=== PATIENT | male | born 2000 | race Caucasian/White ===

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

== ENCOUNTER → 2020-05-01 14:25 | Outpatient (CLI) | payer OTHER, SELFPAY | PROVIDERS: PCP Family Medicine; Referring Provider Family Medicine; Visit Provider Family Medicine | DX: Z20.828 Contact with and (suspected) exposure to other viral communicable diseases (principal) | CPT/HCPCS: 87635; U0003 ==

== ENCOUNTER → 2020-08-11 14:55 | Outpatient (CLI) | payer OTHER, SELFPAY | PROVIDERS: PCP Family Medicine; Referring Provider Family Medicine; Visit Provider Nurse Practitioner Family | DX: R05 Cough (principal) | CPT/HCPCS: 87635; U0003 ==

== ENCOUNTER 2020-08-30 10:18 | Emergency (ER) | payer OTHER, SELFPAY ==
[2020-08-30 10:19] VITALS: BP 133/84; PULSE 91; RESP 17; TEMP 36.1; O2SAT 100; BMI 25.1
--- NOTE | 2020-08-30 10:37 | ED.VIS.GEN ---
History of Present Illness Chief Complaint: Depression Informant: Patient Onset: Month(s) - 1 year Context: Gradual Onset Timing: Waxes and wanes Current Severity: Mild Maximum Severity: Moderate Narrative: Patient presents seeking help for mental health issues. He states he has had problems with depression and suicidal thoughts for the last year or so. He is currently on medication for ADHD but nothing for depression or anxiety. He denies suicidal ideation currently, but does state that she had some suicidal thoughts last night. He believes this stems from being forced into a particular path in his life not being able to make his own decisions. He states he will get very angry when he thinks about this. Last night he states he punched a wall out of anger. Patient does admit to alcohol use in the evenings. He states he can easily skip several nights of drinking and has never had withdrawal. He does admit to vaping and using marijuana. - Past Medical History (1) Asthma Status: Chronic (2) ADHD Status: Chronic Past Medical History - Allergies and Home Meds Allergies/Adverse Reactions: Allergies No Known Allergies Allergy (Verified 08/30/20 10:19) Primary Care Physician: Alvaro Vargas MD [STAFF PHYSICIAN] - Lives: With Family Smoking Status: Current every day smoker - Vape Alcohol: Occasional Drugs: Marijuana Review of Systems General: Denies: Chills, Fever Eyes: Denies: Visual changes - bilaterally ENT: Denies: Bilateral ear pain Cardiovascular: Denies: Chest pain Respiratory: Denies: Dyspnea, Cough Gastrointestinal: Denies: Abdominal pain, Vomiting, Diarrhea Musculoskeletal: Denies: Swelling, Extremity Pain Skin: Denies: Rash Hematologic: Denies: Easy bruising, Easy bleeding Allergy: Denies: Uticaria Physical Exam Vital Signs/Narrative: Vital Signs Temp Pulse Resp BP Pulse Ox 08/30/20 10:19 97.0 F L 91 17 133/84 H 100 Inital Vital Signs reviewed: Yes General: Well nourished, Well developed Head: Normocephalic ENT: Moist mucous membranes Neck: Supple Cardiovascular: Regular rate, Regular rhythm Respiratory: No distress, CTA bilaterally Abdomen: Soft, Nontender Extremities: Nontender Skin: Normal color Neurological: Alert, Oriented x3 Psychological: - - Good eye contact. Patient upfront admitting to problems with his mental health and admits to recent suicidal ideation. He denies particular plan or prior attempts. Diagnostic/Tx/Re-eval Laboratory Results 08/30/20 08/30/20 08/30/20 10:35 10:45 10:45 WBC 7.7 RBC 5.76 Hgb 16.1 Hct 48.4 MCV 84.0 MCH 28.0 MCHC 33.3 RDW Std Deviation 39.7 RDW Coeff of Miriam 13.0 Plt Count 339 MPV 8.7 Immature Gran % (Auto) 0.400 Neut % (Auto) 57.4 Lymph % (Auto) 25.9 Brule % (Auto) 8.2 Eos % (Auto) 7.7 H Baso % (Auto) 0.4 Absolute Neuts (auto) 4.4 Absolute Lymphs (auto) 1.98 Nucleated RBC % 0 Sodium 139 Potassium 4.2 Chloride 109 H Carbon Dioxide 27.0 Anion Gap 3 L BUN 11 Creatinine 1.00 Estim Creat Clear Calc 106.33 Est GFR (MDRD) Af Amer 123 Est GFR (MDRD) Non-Af 101 BUN/Creatinine Ratio 11.0 Glucose 101 Calcium 8.9 Urine Opiates Screen NEGATIVE Urine Methadone Screen NEGATIVE Ur Barbiturates Screen NEGATIVE Ur Phencyclidine Scrn NEGATIVE Ur Amphetamines Screen POSITIVE H U Methamphetamin-MDMA NEGATIVE U Benzodiazepines Scrn NEGATIVE Urine Cocaine Screen NEGATIVE U Cannabinoids Screen POSITIVE H Ur Drug Screen Comment Ethyl Alcohol 08/30/20 10:45 WBC RBC Hgb Hct MCV MCH MCHC RDW Std Deviation RDW Coeff of Miriam Plt Count MPV Immature Gran % (Auto) Neut % (Auto) Lymph % (Auto) [place] % (Auto) Eos % (Auto) Baso % (Auto) Absolute Neuts (auto) Absolute Lymphs (auto) Nucleated RBC % Sodium Potassium Chloride Carbon Dioxide Anion Gap BUN Creatinine Estim Creat Clear Calc Est GFR (MDRD) Af Amer Est GFR (MDRD) Non-Af BUN/Creatinine Ratio Glucose Calcium Urine Opiates Screen Urine Methadone Screen Ur Barbiturates Screen Ur Phencyclidine Scrn Ur Amphetamines Screen U Methamphetamin-MDMA U Benzodiazepines Scrn Urine Cocaine Screen U Cannabinoids Screen Ur Drug Screen Comment Ethyl Alcohol < 3.0 - Medical Decision Making Patient was evaluated by the counseling center. At this time he denies suicidal ideation. He has never attempted in the past. He does not have a specific plan. Counseling center staff will call him tomorrow to check on him. He has an appointment to see [facility] and therapy the following day. Patient was encouraged to please return back to the emergency room for any worsening thoughts or concerns at any time. ED Disposition - Plan for ED Patient: Disposition: Home or Assisted Living Diagnosis: Depression Instructions: ED Depression Referrals: Alvaro Vargas MD [STAFF PHYSICIAN] - Counseling,Center [GROUP OF PHYSICIANS] -
[2020-08-30 10:58] LABS: Absolute Lymphocyte Count 1.98 X10^3/uL (0.83-4.51); Absolute Neutrophil Count 4.4 X10^3/uL (2.0-7.7); Basophil# 0.03 X10^3/uL; Basophil% 0.4 % (0-1); Eosinophil# 0.59 X10^3/uL; Eosinophils% 7.7 % (0-5); Hematocrit 48.4 % (40-54); Hemoglobin 16.1 g/dL (13.0-16.5); Lymphocyte # 1.98 X10^3/ul (4.0); Lymphocyte % 25.9 % (19-41); Mean Corp Hgb Conc 33.3 g/dL (32-36); Mean Platelet Vol. 8.7 fl (6.2-12.0); Monocyte# 0.63 X10^3/uL; Monocyte% 8.2 % (0-10); NRBC Flagged by Analyzer 0 % (0-5); Neutrophil # 4.39 X10^3/uL (2.7-7.7); Neutrophil % 57.4 % (47-70); Platelet Count 339 K/mm3 (150-450); RBC Distribution Width SD 39.7 fl (35.1-43.9); Red Blood Count 5.76 M/mm3 (4.6-6.2); White Blood Count 7.7 K/mm3 (4.4-11.0)
[2020-08-30 11:09] LABS: Anion Gap 3 (5-15); BUN 11 mg/dL (7-18); Calcium,Total 8.9 mg/dL (8.5-10.1); Chloride 109 mmol/L (98-107); EST Glomerular Filtration Rate 101 mL/min (>60); Est Glom Filt Rate - Afr Amer 123 mL/min (>60); Estimated Creatinine Clearance 106.33 ml/min; Glucose 101 mg/dL (74-106); Potassium 4.2 mmol/L (3.5-5.1); Sodium Level 139 mmol/L (136-145)
[2020-08-30 11:10] LABS: Amphetamine Urine VISTA POSITIVE (<1000 ng/mL); Barbiturate Urine VISTA NEGATIVE (< 200 ng/mL); Benzodiazepine Urine VISTA NEGATIVE (< 200 ng/mL); Cocaine Urine VISTA NEGATIVE (< 300 ng/mL); Ecstacy Urine VISTA NEGATIVE (< 500 ng/mL); Methadone Urine VISTA NEGATIVE (< 300 ng/mL); PCP Urine VISTA NEGATIVE (< 25 ng/mL); THC Urine VISTA POSITIVE (< 50 ng/mL); Vista UDS pH Range 7
[2020-08-30 11:30] LABS: Alcohol, Blood (Medical)-Serum < 3.0 mg/dL
[2020-08-30 12:00] VITALS: RESP 17
--- NOTE | 2020-08-30 12:37 | ED.RN ---
faxed info to counseling center
[2020-08-30 14:10] VITALS: BP 108/73; PULSE 74; RESP 16; O2SAT 99
== END 2020-08-30 14:11 | disposition home or self-care (01) ==
PROVIDERS: Emergency Provider Emergency Medicine; PCP Family Medicine
DX: F32.9 Major depressive disorder, single episode, unspecified (principal); R45.851 Suicidal ideations; F17.200 Nicotine dependence, unspecified, uncomplicated; F90.9 Attention-deficit hyperactivity disorder, unspecified type; J45.909 Unspecified asthma, uncomplicated
CPT/HCPCS: 80048; 80307; 80320; 85025; 99282; G0480

== ENCOUNTER 2021-03-20 04:48 | Emergency (ER) | payer OTHER, SELFPAY ==
[2021-03-20 04:49] VITALS: BP 164/104; PULSE 145; RESP 22; TEMP 36.9; O2SAT 99; BMI 24.7
[2021-03-20 05:05] VITALS: BP 161/96; PULSE 114; RESP 24; O2SAT 99
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
[2021-03-20] MEDS: Morphine 4 MG/ML Syringe IV (05:17)
[2021-03-20] MEDS: Ondansetron 4 MG/2 ML Vial IV (05:18)
[2021-03-20] MEDS: 0.9% Normal Saline 1,000 ML 999 ML IV (05:18)
[2021-03-20 05:20] LABS: Absolute Lymphocyte Count 2.45 X10^3/uL (0.83-4.51); Absolute Neutrophil Count 26.6 X10^3/uL (2.0-7.7); Basophil# 0.11 X10^3/uL; Basophil% 0.3 % (0-1); Eosinophil# 0.02 X10^3/uL; Eosinophils% 0.1 % (0-5); Hematocrit 44.5 % (40-54); Hemoglobin 15.1 g/dL (13.0-16.5); Lymphocyte # 2.45 X10^3/ul (0.83-4.51); Lymphocyte % 7.7 % (19-41); Mean Corp Hgb Conc 33.9 g/dL (32-36); Mean Corpuscular Hgb 27.7 pg (27.0-32.0); Mean Corpuscular Volume 81.7 fL (80-94); Mean Platelet Vol. 8.5 fl (6.2-12.0); Monocyte# 1.82 X10^3/uL; Monocyte% 5.7 % (0-10); NRBC Flagged by Analyzer 0 % (0-5); Neutrophil % 83.3 % (47-70); POSITIVE COUNT YES; POSITIVE DIFFERENTIAL YES; Platelet Count 418 K/mm3 (150-450); RBC Distribution Width CV 13.1 % (11.6-14.6); RBC Distribution Width SD 38.3 fl (35.1-43.9); Red Blood Count 5.45 M/mm3 (4.6-6.2); White Blood Count 31.9 K/mm3 (4.4-11.0)
[2021-03-20 05:26] LABS: Differential Indicated SCAN CRITERIA MET
[2021-03-20 05:36] LABS: AST(SGOT) 87 U/L (15-37); Alanine Aminotransfer ALT/SGPT 62 U/L (16-61); Albumin, Serum 4.3 g/dL (3.2-5.0); Alkaline Phosphatase 117 U/L (45-117); Anion Gap 11 (5-15); BUN 14 mg/dL (7-18); BUN/Creat Ratio 11.4 RATIO (10-20); Bilirubin, Direct 0.14 mg/dL (0.00-0.30); Calcium,Total 8.4 mg/dL (8.5-10.1); Chloride 104 mmol/L (98-107); Creatinine, Serum 1.23 mg/dL (0.70-1.30); EST Glomerular Filtration Rate 79 mL/min (>60); Est Glom Filt Rate - Afr Amer 96 mL/min (>60); Estimated Creatinine Clearance 89.57 ml/min; Globulin 3.5 g/dL (2.2-4.2); Glucose 198 mg/dL (74-106); Potassium 3.2 mmol/L (3.5-5.1); Protein, Total 7.8 g/dL (6.4-8.2); Sodium Level 139 mmol/L (136-145)
[2021-03-20 05:37] LABS: International Normalized Ratio 1.1; Prothrombin Time (Protime)PT. 13.9 SECONDS (11.7-14.9)
[2021-03-20 05:38] LABS: Partial Thromboplast Time 31.3 Seconds (24.1-36.2)
--- NOTE | 2021-03-20 05:58 | ED.RN ---
cervical collar applied.
[2021-03-20] MEDS: HYDROmorphone 0.5 MG/0.5 ML SYRINGE IV ×2 (06:08→07:18)
[2021-03-20] MEDS: 0.9% Normal Saline 1,000 ML 200 ML IV (06:09)
[2021-03-20 06:10] VITALS: BP 177/100; PULSE 113; RESP 25; O2SAT 99
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
[2021-03-20 06:25] VITALS: BP 183/103; PULSE 110; RESP 17; O2SAT 98
[2021-03-20 07:13] VITALS: BP 154/105; PULSE 113; RESP 27; O2SAT 100
[2021-03-20] MEDS: Lidocaine 1% (20 ml mdv) 20 ML Vial INFILT (07:18)
[2021-03-23 12:10] LABS: Pathologist Review Reviewed
== END 2021-03-20 07:31 | disposition short-term general hospital (02) ==
PROVIDERS: Emergency Provider Emergency Medicine; PCP Family Medicine
DX: S12.300A Unspecified displaced fracture of fourth cervical vertebra, initial encounter for closed fracture (principal); S22.41XA Multiple fractures of ribs, right side, initial encounter for closed fracture; S09.90XA Unspecified injury of head, initial encounter; S01.111A Laceration without foreign body of right eyelid and periocular area, initial encounter; S42.302A Unspecified fracture of shaft of humerus, left arm, initial encounter for closed fracture; V43.62XA Car passenger injured in collision with other type car in traffic accident, initial encounter; Y93.89 Activity, other specified; Y92.410 Unspecified street and highway as the place of occurrence of the external cause; Y99.9 Unspecified external cause status; F17.210 Nicotine dependence, cigarettes, uncomplicated
CPT/HCPCS: 12013; 70450; 71260; 72125; 73060; 74177; 80048; 80076; 82077; 85025; 85610; 85730; 93005; 96361; 96374; 96375; 96376; 99285; Q9967; A4216; J2405

== ENCOUNTER 2021-03-22 23:24 | Emergency (ER) | payer OTHER, SELFPAY ==
[2021-03-22 23:24] VITALS: BP 190/119; PULSE 132; RESP 21; TEMP 36.6; O2SAT 97; BMI 27.1
[2021-03-23 00:50] LABS: Absolute Lymphocyte Count 2.34 X10^3/uL (0.83-4.51); Absolute Neutrophil Count 7.7 X10^3/uL (2.0-7.7); Basophil# 0.03 X10^3/uL; Basophil% 0.3 % (0-1); Eosinophil# 0.14 X10^3/uL; Eosinophils% 1.2 % (0-5); Hematocrit 30.3 % (40-54); Hemoglobin 10.4 g/dL (13.0-16.5); Lymphocyte # 2.34 X10^3/ul (0.83-4.51); Lymphocyte % 20.3 % (19-41); Mean Corp Hgb Conc 34.3 g/dL (32-36); Mean Corpuscular Hgb 27.7 pg (27.0-32.0); Mean Corpuscular Volume 80.8 fL (80-94); Mean Platelet Vol. 9.1 fl (6.2-12.0); Monocyte% 11.3 % (0-10); NRBC Flagged by Analyzer 0 % (0-5); Neutrophil # 7.65 X10^3/uL (2.7-7.7); Neutrophil % 66.3 % (47-70); Platelet Count 249 K/mm3 (150-450); RBC Distribution Width CV 12.7 % (11.6-14.6); RBC Distribution Width SD 37.2 fl (35.1-43.9); Red Blood Count 3.75 M/mm3 (4.6-6.2); White Blood Count 11.5 K/mm3 (4.4-11.0)
[2021-03-23 01:01] LABS: Amphetamine Urine VISTA NEGATIVE (<1000 ng/mL); Barbiturate Urine VISTA NEGATIVE (< 200 ng/mL); Benzodiazepine Urine VISTA NEGATIVE (< 200 ng/mL); Cocaine Urine VISTA NEGATIVE (< 300 ng/mL); Ecstacy Urine VISTA NEGATIVE (< 500 ng/mL); Methadone Urine VISTA NEGATIVE (< 300 ng/mL); PCP Urine VISTA NEGATIVE (< 25 ng/mL); THC Urine VISTA POSITIVE (< 50 ng/mL); Vista UDS pH Range 8
[2021-03-23 01:04] LABS: Anion Gap 6 (5-15); BUN 6 mg/dL (7-18); BUN/Creat Ratio 8.5 RATIO (10-20); Chloride 100 mmol/L (98-107); Creatinine, Serum 0.71 mg/dL (0.70-1.30); EST Glomerular Filtration Rate 149 mL/min (>60); Est Glom Filt Rate - Afr Amer 181 mL/min (>60); Estimated Creatinine Clearance 149.77 ml/min; Glucose 130 mg/dL (74-106); Potassium 3.1 mmol/L (3.5-5.1); Sodium Level 134 mmol/L (136-145)
[2021-03-23] MEDS: Acetaminophen 500 MG Tablet 1000 MG PO (01:20)
[2021-03-23 01:39] LABS: Alcohol, Blood (Medical)-Serum < 3.0 mg/dL
[2021-03-23 02:24] VITALS: RESP 14
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
[2021-03-23 04:04] VITALS: RESP 15
[2021-03-23 04:25] VITALS: PULSE 86; RESP 16; O2SAT 98
== END 2021-03-23 04:26 | disposition home or self-care (01) ==
PROVIDERS: Emergency Provider Emergency Medicine; PCP Family Medicine
DX: Z48.00 Encounter for change or removal of nonsurgical wound dressing (principal); H11.30 Conjunctival hemorrhage, unspecified eye; F17.210 Nicotine dependence, cigarettes, uncomplicated
CPT/HCPCS: 80048; 80307; 82077; 85025; 87426; 99285

== ENCOUNTER → 2021-08-09 15:54 | Outpatient (CLI) | payer OTHER, SELFPAY | PROVIDERS: PCP Family Medicine | DX: Z79.899 Other long term (current) drug therapy (principal) | CPT/HCPCS: 36415; 82077 ==

== ENCOUNTER 2021-09-02 14:23 | Outpatient (RCR) | payer OTHER, SELFPAY | END 2021-09-18 18:00 | disposition home or self-care (01) | LOC: MTLAB 14:23 | PROVIDERS: PCP Family Medicine | DX: Z79.899 Other long term (current) drug therapy (principal) | CPT/HCPCS: 36415; 82077 ==

== ENCOUNTER 2022-03-23 21:56 | Emergency (ER) | payer BC, SELFPAY ==
[2022-03-23 21:57] VITALS: BP 199/153; PULSE 165; RESP 16; TEMP 35.9; O2SAT 98; BMI 25.2
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
[2022-03-23] MEDS: Ziprasidone IM 20 MG/ML VIAL IM (22:30)
[2022-03-23 23:45] VITALS: BP 118/74; PULSE 60; RESP 17; O2SAT 98
[2022-03-24] VITALS: RESP 15
[2022-03-24 02:00] VITALS: RESP 15
[2022-03-24 04:00] VITALS: RESP 16
[2022-03-24 04:48] VITALS: BP 129/80; PULSE 64; RESP 17; O2SAT 100
[2022-03-24 06:00] VITALS: RESP 17
[2022-03-24 07:25] VITALS: BP 124/67; PULSE 71; RESP 15; O2SAT 98
== END 2022-03-24 07:26 | disposition home or self-care (01) ==
PROVIDERS: Emergency Provider Emergency Medicine; PCP Family Medicine; Visit Provider Emergency Medicine
DX: F10.121 Alcohol abuse with intoxication delirium (principal); F17.220 Nicotine dependence, chewing tobacco, uncomplicated; Z91.14 Patient's other noncompliance with medication regimen; F32.A Depression, unspecified; F41.9 Anxiety disorder, unspecified
CPT/HCPCS: 96372; 99282; J3486

== ENCOUNTER → 2024-03-07 | Outpatient (CLI) | payer BC, SELFPAY ==
[2024-03-07 14:56] LABS: Hemoglobin A1c 5.6 % (3.8-5.6)
[2024-03-07 15:24] LABS: Cholesterol 206 mg/dL (200); Glucose 85 mg/dL (74-106); High Density Lipoprotein 59 mg/dL; Triglycerides 96 mg/dL; Very Low Density Lipoprotein 19 mg/dL (5-40)
== END | disposition home or self-care (01) ==
PROVIDERS: PCP Family Medicine; Referring Provider Family Medicine; Visit Provider Family Medicine
DX: Z00.00 Encounter for general adult medical examination without abnormal findings (principal); Z83.3 Family history of diabetes mellitus
CPT/HCPCS: 36415; 80061; 82947; 83036